=== PATIENT | male | born 1955 | race Caucasian/White ===

== ENCOUNTER 2017-06-01 08:16 | Emergency (ER) | payer OTHER, MEDICARE ==
[2017-06-01] MEDS ORDERED: ACETAMINOPHEN 325 MG TABLET PO ONE (08:19)
--- NOTE | 2017-06-01 09:26 | RADIOLOGY REPORT (SQ) ---
EXAM DESCRIPTION: SHOULDER LEFT 2 OR MORE VIEWS COMPLETED DATE/TIME: 06/01/2017 9:10 am REASON FOR STUDY: fall COMPARISON: None. NUMBER OF VIEWS: Three views. TECHNIQUE: Internal rotation, external rotation, and Y view images acquired of the left shoulder. LIMITATIONS: None. FINDINGS: MINERALIZATION: Osteopenic BONES: Acute comminuted nondisplaced fracture left humeral neck. Very mild varus angulation. Left clavicle, scapula, left upper ribs are intact. JOINTS: No glenohumeral dislocation. No acromioclavicular joint widening VISUALIZED LUNGS AND RIBS: No pneumothorax. No rib fracture. SOFT TISSUES: No radiopaque foreign body. OTHER: No other significant finding. IMPRESSION: Acute comminuted nondisplaced fracture left humeral neck TECHNICAL DOCUMENTATION: JOB ID: [id number] [employer] All Rights Reserved Reading location - IP/workstation name: [email or web address]
[2017-06-01] MEDS ORDERED: OXYCODONE-ACETAMINOPHEN 5-325 MG TABLET PO ONE (09:57)
--- NOTE | 2017-06-01 09:57 | ER Document Report ---
ED General - General Chief Complaint: Shoulder Injury Stated Complaint: FALL/SHOULDER INJURY Time Seen by Provider: 06/01/17 08:36 TRAVEL OUTSIDE OF THE [place] IN LAST 30 DAYS: No - HPI Patient complains to provider of: Left shoulder injury Notes: Patient coming in for evaluation of left shoulder injury. Patient states that he was playing soccer when he fell on his left shoulder night prior to arrival. Patient denies any fevers chills nausea vomiting diarrhea or trouble breathing chest pain. Patient resting comfortably upon my evaluation states painful range of motion of left shoulder. - Related Data Allergies/Adverse Reactions: No Known Allergies Allergy (Unverified 07/02/11 17:26) Past Medical History - Social History Smoking Status: Current Every Day Smoker Frequency of alcohol use: Occasional Drug Abuse: None Family History: Reviewed & Not Pertinent Patient has suicidal ideation: No Patient has homicidal ideation: No - Past Medical History Cardiac Medical History: Reports: Hx Hypercholesterolemia Renal/ Medical History: Denies: Hx Peritoneal Dialysis Past Surgical History: Reports: Hx Neurologic Surgery - x3 for aneurysms - Immunizations Hx Diphtheria, Pertussis, Tetanus Vaccination: No Review of Systems - Review of Systems Constitutional: No symptoms reported EENT: No symptoms reported Cardiovascular: No symptoms reported Respiratory: No symptoms reported Gastrointestinal: No symptoms reported Genitourinary: No symptoms reported Male Genitourinary: No symptoms reported Musculoskeletal: Other - Pain left shoulder Skin: No symptoms reported Hematologic/Lymphatic: No symptoms reported Neurological/Psychological: No symptoms reported -: Yes All other systems reviewed and negative Physical Exam - Vital signs Vitals: Pulse Resp BP Pulse Ox 63 16 154/82 H 95 06/01/17 08:25 06/01/17 08:25 06/01/17 08:25 06/01/17 08:25 Interpretation: Normal - General General appearance: Appears well, Alert - HEENT Head: Normocephalic, Atraumatic Eyes: Normal Pupils: PERRL - Respiratory Respiratory status: No respiratory distress Chest status: Nontender Breath sounds: Normal Chest palpation: Normal - Cardiovascular Rhythm: Regular Heart sounds: Normal auscultation Murmur: No - Abdominal Inspection: Normal Distension: No distension Bowel sounds: Normal Tenderness: Nontender Organomegaly: No organomegaly - Back Back: Normal, Nontender - Extremities General upper extremity: Normal inspection, Tender - Tenderness to palpation of the left shoulder with limited range of motion due to pain, Normal color, Normal temperature. No: Normal ROM - Decreased left shoulder due to pain General lower extremity: Normal inspection, Nontender, Normal color, Normal ROM , Normal temperature, Normal weight bearing. No: Yesenia's sign - Neurological Neuro grossly intact: Yes Cognition: Normal Orientation: AAOx4 [place] Coma Scale Eye Opening: Spontaneous [place] Coma Scale Verbal: Oriented [place] Coma Scale Motor: Obeys Commands [place] Coma Scale Total: 15 Speech: Normal Motor strength normal: LUE, RUE, LLE, RLE Sensory: Normal - Psychological Associated symptoms: Normal affect, Normal mood - Skin Skin Temperature: Warm Skin Moisture: Dry Skin Color: Normal Course - Re-evaluation Re-evalutation: 06/01/17 15:30 Patient with a proximal humerus fracture. Patient was placed in a sling given narcotic pain medication. Patient was encouraged to follow-up with orthopedics. Pulses sensation intact distal to injury. - Vital Signs Vital signs: Temp Pulse Resp BP Pulse Ox 98.4 F 60 18 141/74 H 99 06/01/17 10:08 06/01/17 10:08 06/01/17 10:08 06/01/17 10:08 06/01/17 10:08 Discharge - Discharge Clinical Impression: Proximal humeral fracture Qualifiers: Encounter type: initial encounter Fracture type: closed Fracture morphology: unspecified fracture morphology Laterality: left Qualified Code(s): S42.202A - Unspecified fracture of upper end of left humerus, initial encounter for closed fracture Condition: Good Disposition: HOME, SELF-CARE Instructions: Acetaminophen, Oral Narcotic Medication ([facility]), Fracture Proximal Humerus, Sling as Treatment ([facility]) Additional Instructions: Take medication as prescribed. Follow-up with your primary care physician. Please follow-up with the orthopedic physician provided. He may also take Tylenol and Motrin for pain control. Prescriptions: Ibuprofen [Motrin 600 Mg Tablet] 600 mg PO TID #30 tablet Oxycodone HCl 5 mg PO Q6 #30 tablet Forms: Return to Work Referrals: FALLON JIMENEZ MD [ACTIVE STAFF] - Follow up in 3-5 days (Call for an appointment on Saturday)
[2017-06-01 10:11] VITALS: BP 141/74
== END 2017-06-01 10:08 | disposition home or self-care (01) ==
LOC: ER 08:16
DX: S42.202A Unspecified fracture of upper end of left humerus, initial encounter for closed fracture (principal); W19.XXXA Unspecified fall, initial encounter; Y93.66 Activity, soccer; F17.200 Nicotine dependence, unspecified, uncomplicated
CPT/HCPCS: 99283

== ENCOUNTER 2018-04-10 16:56 | Emergency (ER) | payer MEDICARE ==
--- NOTE | 2018-04-10 17:35 | ER Document Report ---
ED General - General Chief Complaint: ETOH Abuse Stated Complaint: ETOH Time Seen by Provider: 04/10/18 17:31 Mode of Arrival: Ambulatory Information source: Patient Notes: This is a 63-year-old man with a history of alcohol abuse who was celebrating his birthday and drinking in the pub and was found lying in the street outside his home. Patient states he may have had a few too many drinks. He denies any pain. He denies any significant fall. He is unsure whether he did fall. EMS arrived at the scene and they were going to bring him to his house when he started having an episode of vomiting so they brought him here. Patient did have an episode of diarrhea as well. Currently, the patient is alert and conversant and pleasant and joking. There is a nephew that is here to pick him up and he states that the patient is baseline. TRAVEL OUTSIDE OF THE [place] IN LAST 30 DAYS: No - HPI Onset: Just prior to arrival Onset/Duration: Gradual Quality of pain: No pain Severity: None Pain Level: Denies Associated symptoms: Diarrhea, Nausea, Vomiting Exacerbated by: Denies Relieved by: Denies Similar symptoms previously: No Recently seen / treated by doctor: No - Related Data Allergies/Adverse Reactions: No Known Allergies Allergy (Unverified 07/02/11 17:26) Past Medical History - General Information source: Patient - Social History Smoking Status: Current Some Day Smoker Cigarette use (# per day): Yes - 1 pack/day Chew tobacco use (# tins/day): No Smoking Education Provided: No Frequency of alcohol use: Heavy Drug Abuse: None Lives with: Family Family History: Reviewed & Not Pertinent Patient has suicidal ideation: No Patient has homicidal ideation: No - Past Medical History Cardiac Medical History: Reports: Hx Hypercholesterolemia Renal/ Medical History: Denies: Hx Peritoneal Dialysis Past Surgical History: Reports: Hx Neurologic Surgery - x3 for aneurysms - Immunizations Hx Diphtheria, Pertussis, Tetanus Vaccination: No Review of Systems - Review of Systems Constitutional: No symptoms reported EENT: No symptoms reported Cardiovascular: No symptoms reported Respiratory: No symptoms reported Gastrointestinal: See HPI, Diarrhea, Nausea, Vomiting. denies: Abdomen distended, Abdominal pain, Blood in vomit Genitourinary: No symptoms reported Male Genitourinary: No symptoms reported Musculoskeletal: No symptoms reported Skin: No symptoms reported Hematologic/Lymphatic: No symptoms reported Neurological/Psychological: No symptoms reported Physical Exam - Vital signs Vitals: Pulse Resp BP Pulse Ox 68 18 133/65 H 100 04/10/18 17:36 04/10/18 17:36 04/10/18 17:36 04/10/18 17:36 Notes: Physical exam: GENERAL: She is alert and oriented x3, no acute distress HEAD: Atraumatic, normocephalic. EYES: Pupils equal round and reactive to light, extraocular movements intact, sclera anicteric, conjunctiva are normal. Face: Patient does have a small 1 cm lesion to the left side of his face that does look like a skin cancer. Patient states it has been there for the past year. ENT: TMs normal, nares patent, oropharynx clear without exudates. Moist mucous membranes. NECK: Normal range of motion, supple without obvious mass or JVD. LUNGS: Breath sounds clear to auscultation bilaterally and equal. No wheezes rales or rhonchi. HEART: Regular rate and rhythm without murmurs, rubs or gallops. ABDOMEN: Soft, normoactive bowel sounds. No tenderness to palpation. No guarding, no rebound. No masses appreciated. EXTREMITIES: Normal range of motion, no pitting or edema. No clubbing or cyanosis. NEUROLOGICAL: Cranial nerves II through XII grossly intact. Normal speech, moving all extremities. PSYCH: Normal mood, normal affect. SKIN: Warm, Dry, normal turgor, no rashes or lesions noted. Course - Re-evaluation Re-evalutation: 04/10/18 19:01 Patient is already requested to leave. He is watching TV and conversant and alert states he feels fine. He is already called family members to pick him up. His nephew was come by and is at the bedside and states this is how he normally is. Patient therefore is at his baseline. I have spoken to both of them about getting skin lesion checked out which is on the left side of his face. - Vital Signs Vital signs: Temp Pulse Resp BP Pulse Ox 68 18 133/65 H 100 04/10/18 17:36 04/10/18 17:36 04/10/18 17:36 04/10/18 17:36 Discharge - Discharge Clinical Impression: EtOH exposure, Vomiting resolved Condition: Stable Disposition: HOME, SELF-CARE Additional Instructions: As we discussed, rest, drink plenty of fluids. Return to the emergency room for any further vomiting or headache or pain or any concerns that she might have. As we discussed, the lesion that you had on the left side of your face for the past year is suspicious. I am concerned it might be a skin cancer and I want you to follow-up with a contact worker so that they can better evaluate you. Follow-up with a contact worker: [facility] [address] , [place], [place] [phone]
[2018-04-10 17:37] VITALS: BP 133/65
== END 2018-04-10 17:50 | disposition home or self-care (01) ==
LOC: ER 16:56
DX: R11.2 Nausea with vomiting, unspecified (principal); R19.7 Diarrhea, unspecified; Z72.89 Other problems related to lifestyle; L98.9 Disorder of the skin and subcutaneous tissue, unspecified; F17.210 Nicotine dependence, cigarettes, uncomplicated
CPT/HCPCS: 99284

== ENCOUNTER 2018-04-11 13:47 | Inpatient (IN) | payer MEDICARE ==
[2018-04-11] MEDS ORDERED: PROPOFOL 1,000 MG/100 ML INFUS..BTL IV ONE (13:54)
--- NOTE | 2018-04-11 14:01 | ER Document Report ---
ED Respiratory Problem - General Stated Complaint: RESPIRATORY DISTRESS Time Seen by Provider: 04/11/18 13:53 Mode of Arrival: Medic Information source: Emergency Med Personnel Notes: 63-year-old male with history of alcohol abuse who was seen here yesterday who presents with EMS after they were called when the patient's sister found him on the floor. Last time the patient was seen was at 2 AM. EMS states that the sister stated that the patient was drinking alcohol "all night". They stated when they arrived the patient was intermittently moving all 4 extremities without purposeful movement. They stated that the patient's oxygenation was 85%. They gave the patient on rocuronium and ketamine and intubated the patient. Patient has been slightly tachycardic with initial rectal temperature of 95.7. Blood pressure has been around 100 systolic. TRAVEL OUTSIDE OF THE [place] IN LAST 30 DAYS: No - HPI Patient complains to provider of: Other - See above Onset: Other - See above Duration: Continuous Context: Other - Unable to obtain secondary to patient's condition Sputum amount: None - Unable to obtain secondary to patient's condition Sputum consistency: Thin Associated symptoms: Other - Unable to obtain secondary to patient's condition Recently seen / treated by doctor: Yes - Related Data Allergies/Adverse Reactions: No Known Allergies Allergy (Unverified 07/02/11 17:26) Past Medical History - Social History Smoking Status: Unknown if Ever Smoked - Unable to obtain secondary to patient's condition Family History: Reviewed & Not Pertinent - Past Medical History Cardiac Medical History: Reports: Hx Hypercholesterolemia Renal/ Medical History: Denies: Hx Peritoneal Dialysis Past Surgical History: Reports: Hx Neurologic Surgery - x3 for aneurysms - Immunizations Hx Diphtheria, Pertussis, Tetanus Vaccination: No Review of Systems - Review of Systems -: Yes ROS unobtainable due to patient's medical condition Physical Exam - Vital signs Vitals: Pulse Ox 100 04/11/18 13:49 Notes: Reviewed vital signs and nursing note as charted by RN. CONSTITUTIONAL: Patient is intubated with an 8 oh ET tube 25 at the teeth. Good condensation on the tubing HEAD: Normocephalic; atraumatic EYES: Pupils are 3 bilaterally and nonreactive ENT: Normal nose; no rhinorrhea; ET tube in place NECK: Supple; no cervical lymphadenopathy, no masses CARD: Tachycardic and regular; no murmurs; symmetric distal pulses RESP: Normal chest excursion with bagging. Chest sounds bilaterally. No wheezing, rales, rhonchi on my examination ABD/GI: Normal bowel sounds; non-distended; soft, old surgical scar; no palpable organomegaly or masses BACK: The back appears normal EXT: Normal ROM in all joints; ; no edema SKIN: No acute lesions noted NEURO: Patient is intubated and sedated Course - Re-evaluation Re-evalutation: 04/11/18 13:59 Given the history and physical examination, I ordered a stat portable x-ray, basic labs, heated fluid, liver panel, lipase, lactic acid, Tylenol, aspirin, ethanol, and will start the patient on a propofol drip. Heart rate is currently 102. Blood pressure is 110/81. Given the unknown history with the report as indicated, I do believe alcohol intoxication with possible drug abuse is likely. However I will proceed with a CT scan of the head given that I am not able to perform a physical examination given the intubated state of the patient. I was able to talk to the patient's family. It does appear that the patient had aneurysm clipping x3 in 2008 at [facility]. 04/11/18 14:01 Patient was seen here yesterday secondary to alcohol intoxication with one episode of vomiting stating it was his birthday. EKG shows a heart of 92, normal sinus rhythm, normal axis, no obvious ST elevation or depression. PVCs present 04/11/18 14:29 Patient started to have some desaturations into around 81/82. Portable x-ray of the chest did show that the tube was around 4 cm above the brennan. We did advance the tube. I took the patient off the respirator and bagged the patient. Bilateral breath sounds. With bagging the patient quickly within 1 minute went to 98%. They are exchanging the respirator. 04/11/18 14:59 Oxygenation is now stable at 99%. Heart rate is 105. Initial laboratory work as recorded. ABG will be repeated. Given the lactic acid we will provide vancomycin and Zosyn. 04/11/18 15:[address] scan of the head shows no obvious acute intracranial pathology/subarachnoid hemorrhage, I will most likely start the patient on heparin and transfer to outside facility. 04/11/18 15:43 CT scan shows diffuse intraventricular bleed from subarachnoid hemorrhage with extensive vasogenic edema. No change in neurologic exam. I have called [facility] for transfer. 04/11/18 15:56 I called and spoke directly to the production control scheduler at [facility]. I have explained the full history and physical examination as well as the patient's current vital signs of a heart rate of 91 and a blood pressure of 85/53. He has asked me to start the patient on a vasopressin drip while providing mannitol 1 mg/kg as well as 1 g of tranexamic acid. I have elevated the head of the bed 30 degrees. I have called the pharmacy to make sure that the vasopressin drip is appropriate. I will switch the patient's sedation medications Versed drip. 04/11/18 17:12 Patient did have an episode of cardiac arrest with the patient's pulse was lost. Blood pressure dipped to 70 systolic. We added Levophed to the vasopressin after a round of compressions and epinephrine. Patient had a regain of spontaneous pulse with a heart rate of 95 and a blood pressure of 120/100. - Vital Signs Vital signs: Temp Pulse Resp BP Pulse Ox 97.6 F 25 H 97/78 L 100 04/11/18 16:16 04/11/18 16:16 04/11/18 16:16 04/11/18 16:16 - Laboratory Result Diagrams: 04/11/18 13:55 04/11/18 13:55 Laboratory results interpreted by me: 04/11/18 04/11/18 04/11/18 13:55 13:55 13:55 WBC 14.1 H RBC 4.24 L MCV 98 H MCH 34.0 H Seg Neutrophils % 84.2 H Lymphocytes % 8.1 L Absolute Neutrophils 11.8 H Carbonic Acid ABG pH ABG pCO2 ABG pO2 ABG HCO3 ABG Total CO2 ABG O2 Saturation Sodium 134.1 L Carbon Dioxide 16 L Glucose 181 H Lactic Acid 5.4 H Salicylates < 1.0 L Acetaminophen < 10 L 04/11/18 04/11/18 14:19 15:13 WBC RBC MCV MCH Seg Neutrophils % Lymphocytes % Absolute Neutrophils Carbonic Acid 1.61 H 0.96 L ABG pH 7.11 L* 7.24 L ABG pCO2 53.4 H 31.8 L ABG pO2 52.8 L 110.4 H ABG HCO3 16.7 L 13.3 L ABG Total CO2 18.3 L 14.3 L ABG O2 Saturation 75.0 L Sodium Carbon Dioxide Glucose Lactic Acid Salicylates Acetaminophen Critical Care Note - Critical Care Note Total time excluding time spent on procedures (mins): 125 Discharge - Discharge Clinical Impression: Subarachnoid bleed Coma Qualifiers: Coma depth: Casper coma 3-8 Coma timing: in the field (EMT or ambulance) Qualified Code(s): R40.2431 - Casper coma scale score 3-8, in the field [EMT or ambulance] Condition: Critical Disposition: [facility]
[2018-04-11 14:15] LABS: ABSOLUTE LYMPHOCYTES (AUTO) 1.1 10^3/uL (0.5-4.7); ABSOLUTE MONOCYTES (AUTO) 1.1 10^3/uL (0.1-1.4); ABSOLUTE NEUT (AUTO) 11.8 10^3/uL (1.7-8.2); BASOPHILS % (AUTO) 0.2 % (0-2); HEMATOCRIT 41.7 % (37.9-51.0); HEMOGLOBIN 14.4 g/dL (13.5-17.0); LYMPHOCYTES % (AUTO) 8.1 % (13-45); MEAN CORPUSCULAR HGB CONC 34.5 g/dL (32.0-36.0); MEAN CORPUSCULAR VOLUME 98 fl (80-97); MONOCYTES % (AUTO) 7.5 % (3-13); PLATELET COUNT 221 10^3/uL (150-450); RED BLOOD COUNT 4.24 10^6/uL (4.35-5.55); RED CELL DISTRIBUTION WIDTH 13.1 % (11.5-14.0); SEGMENTED NEUTROPHILS % (AUTO) 84.2 % (42-78); TOTAL CELLS COUNTED % (AUTO) 100 %; WHITE BLOOD COUNT 14.1 10^3/uL (4.0-10.5)
[2018-04-11 14:34] LABS: ACETAMINOPHEN < 10 ug/mL (10-30); ALANINE AMINOTRANSFERASE 34 U/L (21-72); ALBUMIN 4.6 g/dL (3.5-5.0); ALCOHOL < 10 mg/dL (NONE DETECTED); ALKALINE PHOSPHATASE 77 U/L (38-126); ANION GAP 18 (5-19); ASPARTATE AMINO TRANSFERASE 54 U/L (17-59); BILIRUBIN,DIRECT 0.3 mg/dL (0.0-0.4); BILIRUBIN,TOTAL 0.8 mg/dL (0.2-1.3); BLOOD UREA NITROGEN 16 mg/dL (7-20); CALCIUM 9.2 mg/dL (8.4-10.2); CARBON DIOXIDE 16 mmol/L (22-30); CHLORIDE 100 mmol/L (98-107); GLUCOSE 181 mg/dL (75-110); LIPASE 75.4 U/L (23-300); POTASSIUM 4.1 mmol/L (3.6-5.0); SALICYLATE < 1.0 mg/dL (2.0-20.0); SODIUM 134.1 mmol/L (137-145); TOTAL PROTEIN 7.2 g/dL (6.3-8.2)
[2018-04-11 14:40] LABS: ARTERIAL BLOOD BASE EXCESS -12.9 mmol/L; ARTERIAL BLOOD H2CO3 1.61 mmol/L (1.05-1.35); ARTERIAL BLOOD HCO3 16.7 mmol/L (20-24); ARTERIAL BLOOD PCO2 53.4 mmHg (35-45); ARTERIAL BLOOD PO2 52.8 mmHg (80-100); ARTERIAL BLOOD TOTAL CO2 18.3 mmol/L (23-27)
[2018-04-11 14:46] LABS: ARTERIAL BLOOD FIO2 100%
--- NOTE | 2018-04-11 14:46 | RADIOLOGY REPORT (SQ) ---
EXAM DESCRIPTION: CHEST SINGLE VIEW COMPLETED DATE/TIME: 04/11/2018 2:37 pm REASON FOR STUDY: 17; intubated /2 hypoxia COMPARISON: 10/26/2008 EXAM PARAMETERS: NUMBER OF VIEWS: One view. TECHNIQUE: Single frontal radiographic view of the chest acquired. RADIATION DOSE: NA LIMITATIONS: None. FINDINGS: LUNGS AND PLEURA: Endotracheal tube is in satisfactory position. Lung saldana are hyperexp anded but clear. No pneumothorax. MEDIASTINUM AND HILAR STRUCTURES: No masses. Contour normal. HEART AND VASCULAR STRUCTURES: Heart normal in size. Normal vasculature. BONES: No acute findings. HARDWARE: None in the chest. OTHER: No other significant finding. IMPRESSION: Endotracheal tube is in satisfactory position. No acute findings in the chest. TECHNICAL DOCUMENTATION: JOB ID: [id number] [email or web address]- All Rights Reserved Reading location - IP/workstation name: [email or web address]
[2018-04-11 14:47] LABS: ARTERIAL BLOOD PH 7.11 (7.35-7.45)
[2018-04-11] MEDS ORDERED: PIPERACILLIN/TAZOBACTAM 3.375 GM VIAL IV ONE (14:58)
[2018-04-11] MEDS ORDERED: NORMAL SALINE 1000 ML 2,000 ML IV PRN (14:58)
[2018-04-11] MEDS ORDERED: VANCOMYCIN HCL INJ 1000 MG VIAL IV ONE (14:58)
[2018-04-11 15:06] LABS: URINE AMPHETAMINES SCREEN NEGATIVE; URINE BARBITURATES SCREEN NEGATIVE; URINE BENZODIAZEPINES SCREEN NEGATIVE; URINE COCAINE SCREEN NEGATIVE; URINE MARIJUANA (THC) SCREEN NEGATIVE; URINE METHADONE SCREEN NEGATIVE; URINE PHENCYCLIDINE SCREEN NEGATIVE
--- NOTE | 2018-04-11 15:50 | RADIOLOGY REPORT (SQ) ---
EXAM DESCRIPTION: CT HEAD WITHOUT COMPLETED DATE/TIME: 04/11/2018 3:37 pm REASON FOR STUDY: 17; intubated 04/12 hypoxia COMPARISON: 06/12/2011 TECHNIQUE: Axial images acquired through the brain without intravenous contrast. Images reviewed wi th bone, brain and subdural windows. Additional sagittal and coronal reconstructions were generated. Images stored on PACS. All CT scanners at this facility use dose modulation, iterative reconstruction, and/or weight based d osing when appropriate to reduce radiation dose to as low as reasonably achievable (ALARA). [facility]: Dose Right [facility]: CareDose [facility]: Dose Right [facility]: Teradose 4D [facility]: Evermede RADIATION DOSE: CT Rad equipment meets quality standard of care and radiation dose reduction techniq ues were employed. CTDIvol: 53.2 mGy. DLP: 1017 mGy-cm. mGy. LIMITATIONS: None. FINDINGS: VENTRICLES: There is extensive intraventricular blood. The ventricles are dilated. CEREBRUM: There is extensive subarachnoid hemorrhage. There is diffuse vasogenic edema. CEREBELLUM: Basilar cisterns are effaced. There is blood in the 4th ventricle. Impending herniation is suspected. EXTRAAXIAL SPACES: No fluid collections. No masses. ORBITS AND GLOBE: No intra- or extraconal masses. Normal contour of globe without masses. CALVARIUM: No fracture. PARANASAL SINUSES: No fluid or mucosal thickening. SOFT TISSUES: No mass or hematoma. OTHER: No other significant finding. IMPRESSION: Extensive intraventricular and subarachnoid hemorrhage with secondary hydrocephalus. Ba silar cisterns are effaced. Impending herniation is suspected. EVIDENCE OF ACUTE STROKE: Yes COMMENT: Pertinent findings on the imaging study reported as a CRITICAL RESULT to ELVIS MILLER MD at 15:43 on 04/11/2018. Category of Critical Result: Intraventricular/subarachnoid hemorrhage Quality ID # [id number]: Final reports with documentation of one or more dose reduction techniques (e.g., Au tomated exposure control, adjustment of the mA and/or kV according to patient size, use of iterative reconstruction technique) TECHNICAL DOCUMENTATION: JOB ID: [id number] [employer]- All Rights Reserved Reading location - IP/workstation name: [email or web address]
[2018-04-11] MEDS ORDERED: NORMAL SALINE 1000 ML 1,000 ML IV ONE ×2 (15:52→15:53)
[2018-04-11] MEDS ORDERED: TRANEXAMIC ACID INJ/PF 1,000 MG/10 ML SDV IV ONE (15:52)
[2018-04-11] MEDS ORDERED: MANNITOL 25% INJ 12.5 GM/50 ML VIAL IV ONE (15:53)
[2018-04-11] MEDS ORDERED: DEXTROSE 5%-WATER 250 ML with VASOPRESSIN 100 UNIT IV PRN ×2 (15:53)
[2018-04-11 15:57] LABS: ARTERIAL BLOOD BASE EXCESS -12.9 mmol/L; ARTERIAL BLOOD FIO2 100%; ARTERIAL BLOOD H2CO3 0.96 mmol/L (1.05-1.35); ARTERIAL BLOOD HCO3 13.3 mmol/L (20-24); ARTERIAL BLOOD O2 SATURATION 97.3 % (94-98); ARTERIAL BLOOD PCO2 31.8 mmHg (35-45); ARTERIAL BLOOD PH 7.24 (7.35-7.45); ARTERIAL BLOOD PO2 110.4 mmHg (80-100); ARTERIAL BLOOD TOTAL CO2 14.3 mmol/L (23-27)
[2018-04-11] MEDS ORDERED: MIDAZOLAM HCL 50 MG/100 ML RTUINJ IV PRN (15:58)
[2018-04-11 15:59] LABS: PROTHROMBIN TIME 13.7 SEC (11.4-15.4)
[2018-04-11 16:00] LABS: PARTIAL THROMBOPLASTIN TIME 35.8 SEC (23.5-35.8)
[2018-04-11] MEDS ORDERED: VASOPRESSIN INJ 20 UNIT/1 ML VIAL ONE (16:06)
[2018-04-11] MEDS ORDERED: PHENYTOIN SODIUM INJ/PF 250 MG/5 ML SDV IV ONE (16:20)
[2018-04-11] MEDS ORDERED: PROPOFOL 1,000 MG/100 ML INFUS..BTL IV PRN (16:46)
[2018-04-11] MEDS ORDERED: MANNITOL 250 ML IV ONE (17:00)
--- NOTE | 2018-04-11 18:25 | EKG REPORT ---
SEVERITY:- ABNORMAL ECG - SINUS RHYTHM MULTIFORM VENTRICULAR PREMATURE COMPLEXES ANTERIOR INFARCT, OLD : Confirmed by: Tres Andrade MD 11-Apr-2018 18:24:44
[2018-04-11] MEDS ORDERED: MORPHINE SULFATE 10 MG/ML INJ IV PRN ×3 (20:40→21:25)
[2018-04-11] MEDS ORDERED: GLYCOPYRROLATE INJ 0.4 MG/2 ML VIAL IM ONE (20:44)
--- NOTE | 2018-04-11 20:54 | ER Document Report ---
Doctor's Note Notes: 04/11/18 20:53 I was called to the room as family has requested that the patient be made full comfort measures. I did receive word and sign of the patient was comfort measures. The patient is however still on vasopressor agents as well as intubated. I had an extended conversation with multiple family members at the bedside. The family has elected to proceed with extubation, removal of all vasopressor agents and progression to pure comfort measures. I have ordered morphine 6 mg every 30 minutes as needed for pain or air hunger and will reassess at regular intervals to ensure that this is not need to be increased. Haloperidol as needed for agitation. I am glycopyrrolate has been administered for secretions. The family understands that this will hasten the patient's but is not the goal of our interventions. I have emphasized with family to please notify nursing staff or me personally if the patient appears to be in any discomfort and will continue to reassess the patient myself on regular intervals. 04/11/18 21:25 I have remained at the patient's bedside continuously for 15 minutes. Post extubation despite 10 mg of morphine the patient did demonstrate significant signs of air hunger breathing approximately 50-55 times per minute. We gave an additional 20 mg of morphine over the next 10 minutes dosing at 10 mg, 5 mg 5 mg. After receiving a total of 30 mg of morphine over approximately 15 minutes the patient did have significant improvement of his signs of air does hunger and distress. Family at bedside during this procedure. Patient's respirations at time of me leaving the room 28 breaths/min. Will continue to reassess at regular intervals. I have increased the as needed dosing of morphine to 12 mg q. 30 minutes. I have discussed with Dr. Cisneros who had admitted the patient with the understand that the patient was already extubated and off vasopressin agents. He agrees with the approach and plan.
[2018-04-11] MEDS ORDERED: MORPHINE SULFATE 10 MG/ML INJ IV ONE ×2 (21:23→21:24)
[2018-04-11] MEDS ORDERED: HALOPERIDOL LACTATE INJ 5 MG/1 ML VIAL IV PRN (21:24)
[2018-04-12] MEDS ORDERED: HALOPERIDOL LACTATE INJ 5 MG/1 ML VIAL IV PRN (02:00)
[2018-04-12 05:35] VITALS: BP 90/57
[2018-04-12] MEDS: MORPHINE SULFATE 10 MG/ML INJ IV PRN ×3 (08:53→16:44)
--- NOTE | 2018-04-12 17:45 | PDOC H&P ---
History of Present Illness Admission Date/PCP: 04/11/18 17:47 History of Present Illness: SAMARIA KWAN is a 63 year old male patient of Dr. John Renner with history of alcohol abuse who presented to the ED via EMS intubated due to been found in unresponsive state. Family reported that he has been drinking alcohol all night and was found on the floor without any purposeful interaction. EMS personnel reported hypoxemia on room air with altered mental status necessitating intubation for airway protection as well has improvement in his oxygenation. His initial evaluation in the ED was significant for hypotension with tachycardia and imaging study with head CT scan that revealed extensive intraventricular and subarachnoid hemorrhage with secondary hydrocephalus, basillar cisterns effacement and suspected impending herniation. Patient was maintained on ventilatory support with pressor supports while arrangement was made for his transfer to [facility] for further tertiary level care. Family declined transfer and made patient comfort care. Family terminated all active intervention and requested comfort care measures only. His morbidities include alcohol abuse, hyperlipidemia and cerebral aneurysm s/p three clips application neurosurgical interventions. Past Medical History Cardiac Medical History: Reports: Hyperlipidema Social History Smoking Status: Unknown if Ever Smoked - Advance Directive Resuscitation Status: Comfort Measures Only Family History Family History: Reviewed & Not Pertinent Parental Family History Reviewed: Yes Children Family History Reviewed: Yes Sibling(s) Family History Reviewed.: Yes Medication/Allergy Home Medications: No Home Medications 04/12/18 Allergies/Adverse Reactions: No Known Allergies Allergy (Verified 04/12/18 02:20) Review of Systems ROS unobtainable: Due to mental status Physical Exam Vital Signs: Temp Pulse Resp BP Pulse Ox 97.1 F 74 24 H 90/57 L 95 04/11/18 16:53 04/12/18 05:23 04/12/18 05:23 04/12/18 05:23 04/12/18 05:23 Intake & Output 04/11/18 04/12/18 04/13/18 06:59 06:59 06:59 Intake Total 3470 Output Total 1100 Balance 3470 -1100 Weight 57.6 kg General appearance: PRESENT: mild distress - on supplemental oxygen via nasal cannula Head exam: PRESENT: atraumatic, normocephalic Eye exam: ABSENT: PERRLA - dilated bilaterally and non reactive to light. Ear exam: PRESENT: normal external ear exam Mouth exam: PRESENT: dry mucosa Respiratory exam: PRESENT: clear to auscultation [place] Cardiovascular exam: PRESENT: RRR, +S1, +S2. ABSENT: diastolic murmur, systolic murmur Vascular exam: ABSENT: pallor GI/Abdominal exam: PRESENT: normal bowel sounds, soft Extremities exam: ABSENT: pedal edema Neurological exam: PRESENT: altered - not responsive to painful stimuli with intermittent lack of purposeful extremitries movement Skin exam: PRESENT: dry, warm Results Laboratory Results: 04/11/18 13:55 04/11/18 13:55 04/11/18 13:55 Troponin I 3.680 Impressions: Chest X-Ray 04/11/18 13:53 IMPRESSION: Endotracheal tube is in satisfactory position. No acute findings in the chest. Head CT 04/11/18 13:54 IMPRESSION: Extensive intraventricular and subarachnoid hemorrhage with secondary hydrocephalus. Basilar cisterns are effaced. Impending herniation is suspected. EVIDENCE OF ACUTE STROKE: Yes Assessment & Plan - Diagnosis (1) Coma Qualifiers: Coma depth: [place] coma 3-8 Coma timing: in the field (EMT or ambulance) Qualified Code(s): R40.2431 - Molly coma scale score 3-8, in the field [EMT or ambulance] Is this a current diagnosis for this admission?: Yes Plan: Continue comfort care measures. (2) Subarachnoid bleed Is this a current diagnosis for this admission?: Yes Plan: Continue comfort care measures. - Time Time Spent: 50 to 70 Minutes - I had extensive discussion with family at bedside and are in agreement with comfort care measure at this time. Medications reviewed and adjusted accordingly: Yes Anticipated discharge: Hospice Within: Other - Inpatient Certification Based on my medical assessment, after consideration of the patient's comorbidities, presenting symptoms, or acuity I expect that the services needed warrant INPATIENT care.: Yes I certify that my determination is in accordance with my understanding of Medicare's requirements for reasonable and necessary INPATIENT services [42 CFR 412.3e].: Yes Medical Necessity: Significant Comorbidiites Make Outpatient Treatment Too Risky, Need for Pain Control Post Hospital Care: D/C or Transfer Summary - Plan Summary Plan Summary: Continue comfort care measures. Consider transfer to hospice care.
[2018-04-13] MEDS: MORPHINE SULFATE 10 MG/ML INJ IV PRN ×4 (01:24→16:34)
--- NOTE | 2018-04-13 14:29 | PDOC PROGRESS REPORT ---
Subjective Progress Note for:: 04/13/18 Subjective:: Patient remain unresponsive with intermittent incoherent extremities movement. Reported increase secretion with need for oropharyngeal suctioning. Remain on supplemental oxygen via nasal cannula. Reason For Visit: END OF LIFE COMFORT MEASURES Physical Exam Vital Signs: Temp Pulse Resp BP Pulse Ox 97.1 F 74 24 H 90/57 L 95 04/11/18 16:53 04/12/18 05:23 04/12/18 05:23 04/12/18 05:23 04/12/18 05:23 Intake & Output 04/12/18 04/13/18 04/14/18 06:59 06:59 06:59 Intake Total 3470 Output Total 1930 Balance 3470 -1930 Weight 57.6 kg Physical Exam: General appearance: PRESENT: mild distress - on supplemental oxygen via nasal cannula Head exam: PRESENT: atraumatic, normocephalic Eye exam: ABSENT: pallor, PERRLA - dilated bilaterally and non reactive to light. Ear exam: PRESENT: normal external ear exam Mouth exam: PRESENT: dry mucosa presently Respiratory exam: PRESENT: clear to auscultation [place] Cardiovascular exam: PRESENT: RRR, +S1, +S2. ABSENT: diastolic murmur, systolic murmur GI/Abdominal exam: PRESENT: normal bowel sounds, soft Extremities exam: ABSENT: pedal edema Neurological exam: PRESENT: altered - not responsive to painful stimuli with intermittent lack of purposeful extremities movement Skin exam: PRESENT: dry, warm Results Laboratory Results: 04/11/18 13:55 04/11/18 13:55 04/11/18 13:55 Troponin I 3.680 Impressions: Chest X-Ray 04/11/18 13:53 IMPRESSION: Endotracheal tube is in satisfactory position. No acute findings in the chest. Head CT 04/11/18 13:54 IMPRESSION: Extensive intraventricular and subarachnoid hemorrhage with secondary hydrocephalus. Basilar cisterns are effaced. Impending herniation is suspected. EVIDENCE OF ACUTE STROKE: Yes Assessment & Plan - Diagnosis (1) Coma Qualifiers: Coma depth: [place] coma 3-8 Coma timing: in the field (EMT or ambulance) Qualified Code(s): R40.2431 - Molly coma scale score 3-8, in the field [EMT or ambulance] Is this a current diagnosis for this admission?: Yes (2) Subarachnoid bleed Is this a current diagnosis for this admission?: Yes - Time Time Spent with patient: 25-34 minutes Medications reviewed and adjusted accordingly: Yes Anticipated discharge: Hospice Within: Other - Inpatient Certification Based on my medical assessment, after consideration of the patient's comorbidities, presenting symptoms, or acuity I expect that the services needed warrant INPATIENT care.: Yes I certify that my determination is in accordance with my understanding of Medicare's requirements for reasonable and necessary INPATIENT services [42 CFR 412.3e].: Yes Medical Necessity: Need Close Monitoring Due to Risk of Patient Decompensation, Need for Pain Control Post Hospital Care: D/C Export Specialist Documentation - Plan Summary Plan Summary: Start on Scopolamine 1.5 mg TD patch q3 days therapy to address reported increase secretion and need for oropharyngeal suctioning. Patient remain on comfort care. Family at bedside awaiting imminent .
[2018-04-13] MEDS ORDERED: SCOPOLAMINE HYDROBROMIDE 1.5 MG PATCH.TD72 TD SCH (16:00)
[2018-04-14] MEDS: MORPHINE SULFATE 10 MG/ML INJ IV PRN ×6 (00:41→18:18)
--- NOTE | 2018-04-14 14:36 | PDOC PROGRESS REPORT ---
Subjective Subjective:: Patient remain unresponsive. Less secretion with use of Scopolamine patch. Remain on supplemental oxygen via nasal cannula. Family at bedside. Reason For Visit: END OF LIFE COMFORT MEASURES Physical Exam Vital Signs: Temp Pulse Resp BP Pulse Ox 97.1 F 74 24 H 90/57 L 95 04/11/18 16:53 04/12/18 05:23 04/12/18 05:23 04/12/18 05:23 04/12/18 05:23 Intake & Output 04/13/18 04/14/18 04/15/18 06:59 06:59 06:59 Output Total 1930 100 Balance -1929 -100 Physical Exam: General appearance: PRESENT: mild distress - on supplemental oxygen via nasal cannula Head exam: PRESENT: atraumatic, normocephalic Respiratory exam: PRESENT: agonal breathing pattern with episodes of tachypnea, clear to auscultation [place] Cardiovascular exam: PRESENT: RRR, +S1, +S2. ABSENT: diastolic murmur, systolic murmur GI/Abdominal exam: PRESENT: normal bowel sounds, soft Extremities exam: ABSENT: pedal edema Neurological exam: PRESENT: altered - not responsive to painful stimuli with int ermittent lack of purposeful extremities movement Skin exam: PRESENT: dry, warm Results Laboratory Results: 04/11/18 13:55 04/11/18 13:55 04/11/18 13:55 Troponin I 3.680 Impressions: Chest X-Ray 04/11/18 13:53 IMPRESSION: Endotracheal tube is in satisfactory position. No acute findings in the chest. Head CT 04/11/18 13:54 IMPRESSION: Extensive intraventricular and subarachnoid hemorrhage with secondary hydrocephalus. Basilar cisterns are effaced. Impending herniation is suspected. EVIDENCE OF ACUTE STROKE: Yes Assessment & Plan - Diagnosis (1) Coma Qualifiers: Coma depth: [place] coma 3-8 Coma timing: in the field (EMT or ambulance) Qualified Code(s): R40.2431 - [place] coma scale score 3-8, in the field [EMT or ambulance] Is this a current diagnosis for this admission?: Yes (2) Subarachnoid bleed Is this a current diagnosis for this admission?: Yes - Time Time Spent with patient: 25-34 minutes Medications reviewed and adjusted accordingly: Yes Anticipated discharge: Hospice Within: Other - Inpatient Certification Based on my medical assessment, after consideration of the patient's comorbidities, presenting symptoms, or acuity I expect that the services needed warrant INPATIENT care.: Yes I certify that my determination is in accordance with my understanding of Medicare's requirements for reasonable and necessary INPATIENT services [42 CFR 412.3e].: Yes Medical Necessity: Other - comfort care measures - Plan Summary Plan Summary: Continue current medication management with efforts at hospice placement.
[2018-04-15] MEDS: MORPHINE SULFATE 10 MG/ML INJ IV PRN (01:06)
--- NOTE | 2018-04-21 08:01 | Death Summary ---
Summary Date : 04/15/18 Time of :: 02:20 Autopsy: No Resuscitation Status: Comfort Measures Only Primary Care Provider: Dr. John Renner - Final Diagnosis (1) Coma Is this a current diagnosis for this admission?: Yes (2) Subarachnoid bleed Is this a current diagnosis for this admission?: Yes (3) Alcoholism Is this a current diagnosis for this admission?: Yes (4) Fall at home Is this a current diagnosis for this admission?: Yes Hospital Course:: Patient was admitted with extensive intraventricular and subarachnoid hemorrhage with secondary hydrocephalus and basilar cisterns effacement and suspected impending herniation. Patient did not regain consciousness during hospitalization. He was accepted for transfer to [facility] but family rescinded the transfer and made patient comfort care only. He was s ubsequently extubated and admitted to medical floor. He was pronounced at 0220 hour on 04/15/2018. Autopsy was not performed.
== END 2018-04-15 04:07 | DRG 66 ==
LOC: ER 13:47 → EH 17:47 → 4S 04-12 05:00
PROVIDERS: ADMIT Family Medicine; ATTEND Family Medicine
PROC: 5A1935Z Respiratory Ventilation, Less than 24 Consecutive Hours (ICD-10-PCS; principal; 2018-04-11)
DX: I60.9 Nontraumatic subarachnoid hemorrhage, unspecified (principal); R40.2431 Glasgow coma scale score 3-8, in the field [EMT or ambulance]; E78.00 Pure hypercholesterolemia, unspecified; Z51.5 Encounter for palliative care; G91.4 Hydrocephalus in diseases classified elsewhere; F10.20 Alcohol dependence, uncomplicated; W19.XXXA Unspecified fall, initial encounter; Y92.009 Unspecified place in unspecified non-institutional (private) residence as the place of occurrence of the external cause
CPT/HCPCS: 36415; 70450; 71045; 80053; 80307; 82803; 82962; 83605; 83690; 84484; 85025; 85610; 85730; 87040; 92950; 93005; 93010; 94002; 96361; 96365; 96367; 96368; 99291; 99292; J1165; J1630; J2150; J2250; J2270; J2543; J2704; J3370; J3490; J7030; J7060